=== PATIENT | female | born 1960 | race Caucasian/White ===

== ENCOUNTER 2016-10-06 06:52 | Day surgery (SDC) | payer BC ==
--- NOTE | ~2016-10-06 | EGD ---
EGD REPORT [facility] [address] [id number] NAME: CYNTHIA KNOX : 58 STATUS : [facility] [place] PAT#: [id number] AGE: 56 ADM/REG DATE : 10/06/16 MR#: [id number] REPORT SERV DATE: 10/06/16 DICTATED BY: DATE: REPORT STATUS : Draft TRANSCRIBED BY: [employer] DATE: 10/06/16 [facility] Patient Name: Cynthia Knox Date of : 1960 Attending MD: SANTOS PIERRE MD Procedure Date No Time: 10/06/2016 Procedure: Colonoscopy Indications: Screening for colorectal malignant neoplasm Referring MD: JOIE SILVER MD Medicines: as per anesthesia Complications: No immediate complications. Procedure: Pre-Anesthesia Assessment: - ASA Grade Assessment: II - A patient with mild systemic disease. After I obtained informed consent, the scope was passed under direct vision. Throughout the procedure, the patient's blood pressure, pulse, and oxygen saturations were monitored continuously. The PCF [id number] was introduced through the anus and advanced to the cecum, identified by appendiceal orifice and ileocecal valve. The colonoscopy was performed without difficulty. The patient tolerated the procedure well. The quality of the bowel preparation was adequate to identify polyps. Findings: The perianal and digital rectal examinations were normal. The colon (entire examined portion) appeared normal. Impression: - The entire examined colon is normal. Recommendation: - Repeat colonoscopy in 10 years for surveillance. Procedure Code(s): --- Professional --- 99930, Colonoscopy, flexible, proximal to splenic flexure; diagnostic, with or without collection of specimen(s) by brushing or washing, with or without colon decompression (separate procedure) Diagnosis Code(s): --- Professional --- Z12.11, Encounter for screening for malignant neoplasm of colon CPT copyright 2013 [employer]. All rights reserved. EGD REPORT [address] [place]. [address] NAME: CYNTHIA KNOX : 58 [place]US : [facility] [place]#: [id number] AGE: 56 ADM/REG DATE : 10/06/16 MR#: [id number] REPORT SERV DATE: 10/06/16 DICTATED BY: DATE: REPORT STATUS : Draft TRANSCRIBED BY: [employer] DATE: 10/06/16 The codes documented in this report are preliminary and upon military source operations officer review may be revised to meet current compliance requirements. SANTOS PIERRE MD 10/06/2016 8:40 AM This report has been signed electronically. Number of Addenda: 0 Note Initiated On: 10/06/2016 7:32 AM Scope Withdrawal Time 0 hours 11 minutes 36 seconds
[~2016-10-06 06:52] MED LIST: GUMMY MVI PO
== END 2016-10-06 23:59 | disposition home or self-care (01) ==
LOC: DMU 06:52
PROVIDERS: Internal Medicine Gastroenterology
PROC: 0DJD8ZZ Inspection of Lower Intestinal Tract, Via Natural or Artificial Opening Endoscopic (ICD-10-PCS; principal; 2016-10-06 08:00)
DX: Z12.11 Encounter for screening for malignant neoplasm of colon (principal); Z88.5 Allergy status to narcotic agent; Z90.89 Acquired absence of other organs; Z98.890 Other specified postprocedural states; Z79.899 Other long term (current) drug therapy